=== PATIENT | male | born 1965 | race Two or more races ===

== ENCOUNTER 2017-02-26 05:17 | Day surgery (SDC) | payer OTHER ==
[2017-02-26] VITALS (11 sets, daily range): BP systolic 102–120; BP diastolic 54–74
[~2017-02-26] VITALS: Ht 185.4 cm; Wt 113.4 kg
[~2017-02-26 05:17] MED LIST: NKM
[2017-02-26] MEDS ORDERED: celeBREX 200mg Cap **SURGERY PATIENTS ONLY ORAL ONE ×2 (06:00→06:13)
[2017-02-26] MEDS ORDERED: ceFAZolin 1gm in D5W 55ml IVP ONE (06:00)
[2017-02-26] MEDS ORDERED: oxyCONTIN 20mg tab ORAL ONE (06:00)
[2017-02-26] MEDS ORDERED: Bupivacaine w/Epi 0.25% 30ml Vial INJ ONE (06:20)
[2017-02-26] MEDS ORDERED: EPINEPHrine 1mg/1ml Amp ONE (06:21)
[2017-02-26] MEDS ORDERED: Ropivacaine 5mg/ml Vial 20ml INJ ONE (06:21)
[2017-02-26] MEDS ORDERED: Ketorolac 30mg Inj ONE (07:00)
[2017-02-26] MEDS ORDERED: Zemuron 50mg/5ml Inj IV ONE (07:00)
[2017-02-26] MEDS ORDERED: Propofol 200mg/20ml IV ONE (07:00)
[2017-02-26] MEDS ORDERED: fentaNYL 100 mcg/2 mL IV ONE (07:00)
[2017-02-26] MEDS ORDERED: Lidocaine 1% MPF 10mg/ml 5ml ONE (07:00)
[2017-02-26] MEDS ORDERED: Midazolam 2mg/2ml Inj ONE (07:00)
[2017-02-26] MEDS ORDERED: LR 1000ml ONE (07:00)
[2017-02-26] MEDS ORDERED: Neostigmine 1mg/ml 10ml Inj ONE (07:00)
[2017-02-26] MEDS ORDERED: Glycopyrrolate 0.2mg/ml 1ml Vial ONE (07:00)
[2017-02-26] MEDS ORDERED: NS Irrig 4000ml IRRIG ONE (07:27)
[2017-02-26] MEDS ORDERED: Ketorolac 30mg Inj IV PRN (07:30)
[2017-02-26] MEDS ORDERED: LR 1000ml 1,000 ML IVLG SCH (07:30)
[2017-02-26] MEDS ORDERED: Hydromorphone 0.5mg/0.5ml inj IVP PRN (07:30)
[2017-02-26] MEDS ORDERED: DiphenhydrAMINE 50mg/ml Inj IVP PRN (07:30)
[2017-02-26] MEDS ORDERED: Meperidine 25mg/0.5ml Inj (FOR RIGORS ONLY) IV PRN (07:30)
--- NOTE | 2017-02-26 07:30 | Anethesia Preoperative Eval ---
Anesthesia Pre-op PMH/ROS General Date of Evaluation: Feb 26, 2017 Time of Evaluation: 06:58 Anesthesiologist: Triston ASA Score: ASA 2 Mallampati Score Class I : Soft palate, uvula, fauces, pillars visible Class II: Soft palate, uvula, fauces visible Class III: Soft palate, base of uvula visible Class IV: Only hard plate visible Mallampati Classification: Class II Surgeon: Mejia Diagnosis: R shoulder pain Surgical Procedure: R shoulder arthroscopy Anesthesia History: none Family History: no anesthesia problems Allergies: Coded Allergies: No Known Allergies (Unverified , 02/25/17) Medications: see eMAR Past Medical History Cardiovascular: Denies: HTN, CAD, [place], valve dz, arrhythmia, other Pulmonary: Denies: asthma, COPD, ANTHONY, other Gastrointestinal/Genitourinary: Reports: GERD, Denies: CRI, ESRD, other Neurologic/Psychiatric: Denies: dementia, CVA, depression/anxiety, TIA, other Endocrine: Denies: DM, hypothyroidism, steroids, other HEENT: Denies: cataract (L), cataract (R), glaucoma, T[place]-BILOXI (L), T[place]BIL[place]I (R), other Hematology/Immune: Denies: anemia, DVT, bleeding disorder, other Musculoskeletal/Integumentary: Denies: OA, RA, DJD, DDD, edema, other Other: obesity PMH Narrative: as above PSxH Narrative: hernia repair Anesthesia Pre-op Phys. Exam Physician Exam Last Vital Signs Date Time Temp Pulse Resp B/P (MAP) Pulse Ox O2 Delivery O2 Flow Rate FiO2 02/26/17 06:16 98.1 51 18 116/71 99 Room Air Constitutional: NAD Neurologic: CN 2-12 intact Cardiovascular: RRR, no M/R/G Respiratory: CTA Gastrointestinal: other - obesity Airway Exam Mallampati Score: Class II MO: full Neck: flexible ROM: full Teeth: intact Dentures: no upper, no lower Anesthesia Pre-op A/P Labs see chart Studies Pre-op Studies: EKG - NSR, CXR - WNL Risk Assessment & Plan Assessment: ASA 2 Plan: GA wth ETT R brachial plexus block for post op pain control Status Change Before Surgery: No Pre-Antibiotics Drug: Ancef 2gr. Given Within 1 Hr of Incision: Yes Time Given: 07:40 GA TONEY M.D. Feb 26, 2017 07:30
--- NOTE | 2017-02-26 07:55 | Pre-Procedure Note/Attestation ---
Pre-Procedure Note/Attestation Complete Prior to Procedure Planned Procedure: right Procedure Narrative: shoulder arthroscopy, sad, possible rc repair Indications for Procedure Pre-Operative Diagnosis: right shoulder impungement/rct Attestation I attest that I discussed the nature of the procedure; its benefits; risks and complications; and alternatives (and the risks and benefits of such alternatives ), prior to the procedure, with the patient (or the patient's legal agency sales representative). I attest that, if there was a reasonable possibility of needing a blood transfusion, the patient (or the patient's legal agency sales representative) was given the [facility] standardized written summary, pursuant to the Antonio Hooven Blood Safety Act ([place] Health and Safety Code # 1645, as amended). I attest that I re-evaluated the patient just prior to the surgery and that there has been no change in the patient's H&P, except as documented below: PETER HARDWICK Feb 26, 2017 07:55
--- NOTE | 2017-02-26 07:56 | Operative Note - PDOC ---
Operative Note Operative Note Pre-op Diagnosis: right shoulder impungement/rct Procedure: see op report Post-op Diagnosis: same as pre-op plus Operative Findings: consistent w/pre-op dx studies Anesthesia: regional Specimen: none Complications: none Condition: stable Estimated Blood Loss: none Implant(s) used?: PETER Melendez Feb 26, 2017 07:56
[2017-02-26] MEDS ORDERED: D5 1/2NS 1,000 ML IV SCH (08:00)
[2017-02-26] MEDS ORDERED: HYDROmorphone 1mg/ml Carpuject SUBQ PRN (09:00)
[2017-02-26] MEDS ORDERED: Tylenol #3 tab (300mg/30mg) ORAL PRN (09:00)
[2017-02-26] MEDS ORDERED: Norco 5mg/325mg tab ORAL PRN (09:00)
--- NOTE | 2017-02-26 09:26 | Immediate Post-Op Evaluation ---
Immediate Post-Op Evalulation Immediate Post-Op Evalulation Procedure: R shoulder arthroscopy subacromion decompression RC repair Date of Evaluation: Feb 26, 2017 Time of Evaluation: 09:25 IV Fluids: 1100 Blood Products: none Estimated Blood Loss: 50 Urinary Output: none Blood Pressure Systolic: 116 Blood Pressure Diastolic: 65 Pulse Rate: 72 Respiratory Rate: 20 O2 Sat by Pulse Oximetry: 98 Temperature (Fahrenheit): 97.5 Pain Score (1-10): 2 Nausea: No Vomiting: No Complications none Patient Status: reacts, patent, extubated, none Hydration Status: adequate GA TONEY M.D. Feb 26, 2017 09:26
--- NOTE | 2017-02-26 11:10 | 48 Hour Post Anesthesia Eval ---
Post Anesthesia Evaluation Procedure: R shoulder arthroscopy subacromion decompression RC repair Date of Evaluation: Feb 26, 2017 Time of Evaluation: 11:08 Blood Pressure Systolic: 116 0: 54 Pulse Rate: 59 Respiratory Rate: 20 Temperature (Fahrenheit): 97.6 O2 Sat by Pulse Oximetry: 98 Airway: patent Nausea: No Vomiting: No Pain Intensity: 1 Hydration Status: adequate Cardiopulmonary Status: stable Mental Status/LOC: patient returned to baseline Follow-up Care/Observations: n/a Post-Anesthesia Complications: none Follow-up care needed: ready to discharge GA TONEY M.D. Feb 26, 2017 11:10
--- NOTE | 2017-02-26 22:45 | Operative Note - Dictated ---
DATE OF OPERATION: 02/26/2017 PREOPERATIVE DIAGNOSES: 1. Right shoulder partial rotator cuff tear. 2. Right shoulder impingement syndrome. POSTOPERATIVE DIAGNOSES: 1. Right shoulder full-thickness rotator cuff tear. 2. Right shoulder grade 1 superior labral tear. 3. Hypertrophic bursitis/impingement syndrome. PROCEDURES: 1. Right shoulder arthroscopy and extensive intraarticular debridement. 2. Right shoulder arthroscopic rotator cuff repair. 3. Subacromial decompression, bursectomy, and release of CA ligament. SURGEON: Eric Ba M.D. ANESTHESIA: Interscalene with general. INDICATION FOR PROCEDURE: The patient is a pleasant gentleman, who has had significant right shoulder pain. He had MRI, which showed partial versus high-grade rotator cuff tear along with fraying of the superior labrum. He had failed conservative treatment and elected to undergo right shoulder arthroscopy, possible rotator cuff repair, decompression, and debridement versus repair of the SLAP tear. Risks, limitations, expectations, and complications of the procedure discussed in detail including continued pain, need for future surgery, risk of anesthesia, medical complications, DVT, PE, and mortality risks. All questions were addressed. DESCRIPTION OF PROCEDURE: An informed consent was obtained. The patient was brought to the operating room and placed under interscalene general anesthesia. The patient was then carefully placed in a beach-chair position. Right shoulder was prepped and draped in a sterile manner. Time-out was performed. Portal sites were injected with 0.25% Marcaine with epinephrine. Inferolateral stab incision was then made. Trocar introduced into the glenohumeral joint. There was a grade 2 tear of the superior labrum. There was what appeared to be a high-grade partial rotator cuff tear. Anteromedial working portal was established. The anterior labrum appeared to be intact. No evidence of chondral damage. Subscapularis was intact. Shaver was then used to debride the superior labral tear down to stable labral tissue. Once that was done, attention turned towards articular-sided partial rotator cuff tear. This area was debrided. Once it was debrided, better visualization showed that it was actually a full-thickness tear. At this point, the camera was repositioned in the subacromial space. Complete bursectomy was performed. Undersurface of the acromion was identified. Acromioplasty was started from lateral to medial, completed from posterior to anterior. The CA ligament was also released. Once this was done, camera was repositioned in the glenohumeral joint. The bone lateral to articular margin was debrided until we had some bleeding bone. [place] was then placed and secured. Once that was done, the camera was then positioned into the subacromial space and 2 mattress sutures were then placed in the rotator cuff. Once these were tied off, camera was repositioned into the joint. The footprint was completely recreated. At this point, the instruments were removed. Portal sites were closed using 3-0 Monocryl suture. Steri-Strips and sterile dressing were applied. The patient was awoken and taken to recovery room with stable vital signs. ESTIMATED BLOOD LOSS: Minimal. COMPLICATIONS: None. SPECIMENS: None. IMPLANTS: Include one Biomet anchor. Eric Ba M.D. DR: JEANNIE JOB#: [id number] CC:
== END 2017-02-26 13:00 | disposition home or self-care (01) ==
LOC: SUR 05:17
DX: M75.101 Unspecified rotator cuff tear or rupture of right shoulder, not specified as traumatic (principal); S43.431A Superior glenoid labrum lesion of right shoulder, initial encounter; M75.41 Impingement syndrome of right shoulder; M75.51 Bursitis of right shoulder; X58.XXXA Exposure to other specified factors, initial encounter; Y92.89 Other specified places as the place of occurrence of the external cause; Y99.9 Unspecified external cause status; K21.9 Gastro-esophageal reflux disease without esophagitis
CPT/HCPCS: 29823; 29826; 29827; J0171; J0690; J1885; J2250; J2704; J2710; J2795; J3010; J7120; 94003; 94150; C1713